=== PATIENT | male | born 1955 | race African-American/Black ===

== ENCOUNTER 2020-04-26 11:50 | Emergency (ER) | payer BC ==
[2020-04-26 11:59] VITALS: BP 160/75; PULSE 95; TEMP 98.6; BMI 45.1
[2020-04-26] MEDS ORDERED: BAMLANIVIMAB 700 MG in SODIUM CHLORIDE 180 ML IVPB ONE (12:38)
== END 2020-04-26 16:42 | disposition home or self-care (01) ==
LOC: JER 11:50 → JCOVINFU 11:50
DX: U07.1 COVID-19 (principal)
CPT/HCPCS: 99284-25; M0239; Q0239